=== PATIENT | female | born 1945 | race Caucasian/White ===

== ENCOUNTER → 2017-01-04 | Outpatient (CLI) | payer OTHER | END | disposition home or self-care (01) | DX: R26.2 Difficulty in walking, not elsewhere classified (principal); M16.11 Unilateral primary osteoarthritis, right hip; M25.551 Pain in right hip; M25.651 Stiffness of right hip, not elsewhere classified; M62.81 Muscle weakness (generalized) | CPT/HCPCS: 97110 GP; 97150 GO; 97161 GP; 97165 GO; G8978 GP; G8979 GP; G8980 GP; G8990 GO; G8991 GO; G8992 GO ==

== ENCOUNTER 2017-01-31 05:20 | Inpatient (IN) | payer OTHER ==
[~2017-01-31] VITALS: Ht 160 cm; Wt 61.2 kg
[~2017-01-31 05:20] MED LIST: CALCIUM + D SO1 EACH PO; CELEXA40 MG PO; CYMBALTA30 MG PO; IRON325 M1 PO; RANITIDINE HCL150 MG PO; ZOCOR10 MG PO
[2017-01-31 06:04] VITALS: BP 127/63
[2017-01-31 11:53] LABS: HEMATOCRIT 35.5 % (36.0-46.0); MCH 28.3 PG (29.0-34.0); MCHC 33.5 G/DL (30.0-36.0); MCV 84.5 FL (83-99); MEAN PLAT.VOLUME 8.9 uM^3 (9.5-12.4); PLATELET COUNT 255 K/uL (156-360); RBC DIS.WIDTH-SD 39.5 % (39-53); WHITE BLOOD COUNT 23.1 K/uL (4.1-10.2)
[2017-01-31 13:09] VITALS: BP 123/60
[2017-01-31 15:36] VITALS: BP 98/51
[2017-01-31 15:50] VITALS: BP 106/57
[2017-01-31 20:10] VITALS: BP 106/59
[2017-02-01 00:30] VITALS: BP 113/53
[2017-02-01 04:00] VITALS: BP 105/52
[2017-02-01 06:39] LABS: HEMATOCRIT 31.1 % (36.0-46.0); MCV 84.1 FL (83-99)
[2017-02-01 07:04] LABS: ANION GAP 5 MEQ/L (2-14); CHLORIDE 103 MEQ/L (99-109); GFR ESTIMATE (CALCULATED) > 59 mL/min/; GLUCOSE 99 mg/dL (70-99); POTASSIUM 4.5 MEQ/L (3.7-5.4); SAMPLE HEMOLYSIS CHECK 0; SAMPLE ICTERIC CHECK 0; SAMPLE LIPEMIA CHECK 0; SODIUM 135 MEQ/L (136-147); UREA NITROGEN (BUN) 17 mg/dL (9-23)
[2017-02-01 08:00] VITALS: BP 99/50
[2017-02-01 12:00] VITALS: BP 99/49
[2017-02-01] MEDS ORDERED: ENDOCET 5-3251 EACH PO (15:13)
[2017-02-01] MEDS ORDERED: CELECOXIB200 MG PO (15:13)
[2017-02-01] MEDS ORDERED: LOVENOX40 MG/0.4 SC (15:13)
[2017-02-01 15:47] VITALS: BP 90/49
[2017-02-02 00:30] VITALS: BP 123/57
[2017-02-02 04:30] VITALS: BP 129/58
[2017-02-02 08:26] VITALS: BP 97/51
[2017-02-02] MEDS ORDERED: HYDROCODON-ACE1 EAC7 PO (09:25)
[2017-02-02 12:00] VITALS: BP 99/50
== END 2017-02-02 14:25 | disposition home health service (06) | DRG 470 ==
LOC: 3WEST 05:20 → 2SOUTH 05:20 → 3WEST 12:44 → 2SOUTH 13:33 → 3WEST 02-02 14:25
PROVIDERS: Orthopaedic Surgery
PROC: 0SR902Z Replacement of Right Hip Joint with Metal on Polyethylene Synthetic Substitute, Open Approach (ICD-10-PCS; principal; 2017-01-31)
DX: M16.11 Unilateral primary osteoarthritis, right hip (principal); E78.00 Pure hypercholesterolemia, unspecified; F41.9 Anxiety disorder, unspecified; F32.9 Major depressive disorder, single episode, unspecified; Z87.891 Personal history of nicotine dependence; Z90.710 Acquired absence of both cervix and uterus
CPT/HCPCS: 36415; 73501; 73502; 76000; 80048; 85014; 85018; 85027; 86870; 86900; 86901; 86905; 86920; 86999; 97530 GP; C1713; J0690; J1100; J1170; J1650; J2250; J2310; J2405; J2710; J3010; J7030; J7050